=== PATIENT | female | born 2000 | race Caucasian/White ===

== ENCOUNTER 2020-05-25 15:27 | Emergency (ER) | payer BC, SELFPAY ==
--- NOTE | ~2020-05-25 | CT_ITS ---
EXAMINATION: CT abdomen pelvis wo con DATE: 05/25/2020 17:01 INDICATION: Left flank pain and dysuria TECHNIQUE: Computed tomography (CT) of the abdomen and pelvis was performed without intravenous contr ast. The dose-length product (DLP) was 186.76 mGy-cm. Automated exposure control and iterative recons truction technique were employed. COMPARISON: None FINDINGS: The lung bases are clear. The heart size is normal. The liver, spleen, pancreas, gallbladde r, and adrenal glands are normal. The ureters are difficult to follow however, there is a 4 mm stone at the expected location of the left ureterovesicular junction and mild left hydroureteronephrosis. T here is a 4 mm nonobstructing stone of the right kidney. No pathologically enlarged abdominal or pelv ic lymph nodes are identified. There is no free intraperitoneal gas or evidence of bowel obstruction. IMPRESSION: 1. Mild left hydroureteronephrosis with 4 mm stone at the expected location of the left ureterovesicu lar junction. 2. Nonobstructing right nephrolithiasis. Reviewed, dictated and finalized at location A. IMPRESSION: 1. Mild left hydroureteronephrosis with 4 mm stone at the expected location of the left ureterovesicular junction. 2. Nonobstructing right nephrolithiasis.
[2020-05-25 15:55] VITALS: BP 130/84; PULSE 92; RESP 16; TEMP 37.4; O2SAT 99
[2020-05-25 16:16] LABS: Basophils Absolute Auto 0.03 K/mm3 (0.00-0.10); Basophils Percent Auto 0.3 % (0.0-1.0); Eosinophils Absolute Auto 0.12 K/mm3 (0.02-0.50); Eosinophils Percent Auto 1.2 % (1.0-6.0); Hematocrit 40.9 % (35.0-49.0); Hemoglobin 14.1 g/dL (12.0-15.0); Immature Granulocyte Absolute 0.06 K/mm3 (0.00-0.00); Immature Granulocyte Percent A 0.6 % (0.0-0.0); Lymphocytes Absolute Auto 1.54 K/mm3 (1.10-4.50); Lymphocytes Percent Auto 15.7 % (18.0-42.0); Mean Corpuscular HGB Conc 34.5 g/dL (32.0-36.0); Mean Corpuscular Hemoglobin 30.1 pg (27.0-31.0); Mean Corpuscular Volume 87.4 fL (78.0-102.0); Mean Platelet Volume 9.3 fl (9.2-11.8); Monocytes Percent Auto 9.2 % (2.0-11.0); Neutrophils Absolute Auto 7.2 K/mm3 (1.7-7.2); Platelet Count Result 247 K/mm3 (150-420); Red Blood Count 4.68 M/mm3 (4.20-5.40); Red Cell Distribution Width 11.5 % (11.6-14.4); White Blood Count 9.8 K/mm3 (4.8-10.8)
[2020-05-25] MEDS: SODIUM CHLORIDE 0.9% IV 1,000 ML 999 ML IV CONT (16:20)
[2020-05-25 16:21] LABS: Anion Gap 8 mmol/L (8-16); Blood Urea Nitrogen 22 mg/dL (7-18); Calcium 9.1 mg/dL (8.5-10.1); Carbon Dioxide 28 mmol/L (21-32); Chloride 102 mmol/L (98-108); Estimated CRCL calculation 52 ml/min; Estimated Glomerular Filt Rate 51; Glucose 129 mg/dL (70-99); Lipase 123 U/L (73-393); Osmolality Calculated 291 mOsm/kg (285-295); Potassium 3.7 mmol/L (3.5-5.1); Sodium 138 mmol/L (136-145)
[2020-05-25] MEDS: KETOROLAC 30 MG/ML VIAL (*BKC) IV PUSH (16:21)
[2020-05-25 16:28] LABS: Add Urine Microscopic? YES; Appearance Urine Clear (Clear); Bilirubin Urine Negative (Negative); Blood Urine 2+ (Negative); Color Urine Yellow (Yellow); Glucose Urine UA Negative (Negative); Ketones Urine Negative (Negative); Leukocyte Esterase Ur Negative LEU/UL (Negative); Nitrate Urine Negative (Negative); Protein Urine Negative (Negative); Specific Grav Ur >= 1.030 (1.010-1.020); Urobilinogen Urine 0.2 mg/dL (0.2-1.0)
[2020-05-25 16:30] LABS: INR 1.1; Partial Thromboplastin Time 27.5 SEC (22.3-31.6); Prothrombin Time 11.3 Seconds (9.64-11.0)
[2020-05-25 16:31] LABS: Pregnancy On Board Control Positive; Urine Pregnancy Test Negative
[2020-05-25 16:38] LABS: Squamous Epithelial Cell Urine Few /hpf (Few); WBC Urine None seen /hpf (0-3)
[2020-05-25 16:39] LABS: Bacteria Urine 1+ /hpf; Calcium Oxalate Crystals Urine Present /hpf
--- NOTE | 2020-05-25 17:30 | ED.ABDPAIN ---
HPI - Abdominal Pain General Chief Complaint: Urogenital-Female Stated Complaint: 19YO female w. known h.o kidney stones here c/o 3 week h/o Left Flank pain that has been moving downwards. Patient rates pain at 6/10 but states it is bearable. Denies Fever, CHills, Dysuria. Related Data Home Medications Medication Instructions Recorded Confirmed No Home Medications 05/25/20 05/25/20 Allergies Allergy/AdvReac Type Severity Reaction Status Date / Time No Known Allergies Allergy Verified 05/25/20 16:27 Review of Systems Review of Systems: All systems reviewed & are unremarkable except as noted in HPI and below Constitutional: Constitutional: Reports as per HPI, Denies chills and Denies fever(s) Cardiovascular: Cardiovascular: Reports as per HPI and Reports no additional cardiovascular complaints Respiratory: Respiratory: Reports no additional respiratory complaints Gastrointestinal: Gastrointestinal: Reports as per HPI, Denies abdominal pain, Denies diarrhea, Denies nausea and Denies vomiting Genitourinary: Genitourinary: Reports hematuria, Denies dysuria and Reports flank pain (Left) Musculoskeletal: Musculoskeletal: Reports no additional musculoskeletal complaints Integumentary/Breasts: Skin/Breast: Reports system reviewed and no additional complaints, except as docu Neurologic: Reports system reviewed and no additional complaints, except as documented [facility] Past Medical History Medical History (Updated 05/25/20 @ 17:37 by Александр Chaudhry MD) Renal calculi Exam Const: General: healthy appearing, no acute distress and alert Orientation/consciousness: patient oriented x3 HENMT: Head: normal to inspection Eyes: Conjunctivae: conjunctivae normal Pupils: Equal, round and reactive pupils present Neck: Neck: normal visual inspection Resp: Effort & Inspection: normal respiratory effort Auscultation: clear to auscultation bilaterally Cardio: Rate: regular rate Rhythm: regular rhythm GI: Inspection: non-distended GI Palp: Yes Soft to palpation and No Tenderness to palpation present (GI) : General: Yes no CVA tenderness Back/Spine/Pelvis: Back: no CVA tenderness Skin: General skin exam: normal color Neuro: General: patient oriented x3, moves all extremities, no focal motor deficits and CN's II-XI intact bilaterally Course Course Emergency Course: Reviewed w/u which shows Left 4mm stone at UVJ. Will attempt outpt management w/ urology f/u. Patient agreeable to this Vital Signs Vital signs: Vital Signs Temperature 99.3 F 05/25/20 15:55 Pulse Rate 92 05/25/20 15:55 Respiratory Rate 16 05/25/20 15:55 Blood Pressure 130/84 05/25/20 15:55 Pulse Oximetry 99 05/25/20 15:55 Temperature 99.3 F 05/25/20 15:55 Pulse Rate 92 05/25/20 15:55 Respiratory Rate 16 05/25/20 15:55 Blood Pressure 130/84 05/25/20 15:55 Pulse Oximetry 99 05/25/20 15:55 MDM - Abdominal Pain Differential Diagnosis Differential diagnosis: Likely abdominal pain, acute appendicitis, calculus of kidney, diverticulitis, gastroenteritis and pancreatitis Medical Records Attestation: I reviewed the patient's medical records. Lab Data Attestation: I reviewed the patient's lab results. Result diagrams: 05/25/20 16:02 05/25/20 16:02 Labs: Lab Results 05/25/20 05/25/20 05/25/20 Range/Units 16:02 16:02 16:02 WBC 9.8 (4.8-10.8) K/mm3 RBC 4.68 (4.20-5.40) M/mm3 Hgb 14.1 (12.0-15.0) g/dL Hct 40.9 (35.0-49.0) % MCV 87.4 (78.0-102.0) fL MCH 30.1 (27.0-31.0) pg MCHC 34.5 (32.0-36.0) g/dL RDW 11.5 L (11.6-14.4) % Plt Count 247 (150-420) K/mm3 MPV 9.3 (9.2-11.8) fl Immature Gran % (Auto) 0.6 H (0.0-0.0) % Neut % (Auto) 73.0 H (50.0-70.0) % Lymph % (Auto) 15.7 L (18.0-42.0) % [place] % (Auto) 9.2 (2.0-11.0) % Eos % (Auto) 1.2 (1.0-6.0) % Baso % (Auto) 0.3 (0.0-1.0) % Lymph # (Auto)
[2020-05-25] MEDS: TAMSULOSIN HCL 0.4 MG CAPSULE PO (17:34)
[2020-05-25 17:55] VITALS: BP 120/74; PULSE 86; RESP 16; O2SAT 100
== END 2020-05-25 17:55 | disposition home or self-care (01) ==
PROVIDERS: Emergency Provider Family Medicine; PCP Internal Medicine
DX: N20.1 Calculus of ureter (principal)
CPT/HCPCS: 36415; 74176; 80048; 81001; 81025; 83690; 85025; 85610; 85730; 96361; 96374; 99284; A9270; J1885; J7030

== ENCOUNTER 2020-10-31 22:14 | Emergency (ER) | payer BC, SELFPAY ==
--- NOTE | ~2020-10-31 | XR_ITS ---
XR knee LT 3V DATE: 10/31/2020 22:53 INDICATION: Fall, twisted left knee. Patellar dislocation with reduction TECHNIQUE: 3 views COMPARISON: None FINDINGS: No fracture or dislocation or joint effusion. No periosteal reaction or bone destruction, r adiopaque intra-articular loose body or chondrocalcinosis or joint space narrowing. IMPRESSION: Negative Reviewed, dictated and finalized at location A. [employer] IMPRESSION: Negative
[2020-10-31 22:18] VITALS: BP 126/90; PULSE 104; RESP 12; TEMP 37.4; O2SAT 100
--- NOTE | 2020-10-31 22:40 | PC.NURSE ---
patient brought back to ED room 12 with c/o left knee injury tonight while dancing at home. see initial notes. no deformity seen to left knee. mild swelling noted. mother in room. alert. oriented. no change in condition since initial assessment completed. blanket given. tylenol given as ordered. radiology here for portable xray.
[2020-10-31] MEDS: ACETAMINOPHEN 500 MG TABLET 1000 MG PO (22:53)
--- NOTE | 2020-10-31 22:53 | ED.LOWEXIN ---
HPI - Extremity Injury (Lower) General Chief Complaint: Extremity Injury, Lower Stated Complaint: Twisted Knee Time Seen by Provider: 10/31/20 22:29 History of Present Illness HPI Narrative: Patient is a 20-year-old female who presents ER with left knee pain. 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 She is able to reduce it on herself. She has been able to walk. No numbness or tingling to the lower extremities. Normal perfusion to the leg. Patient also reports discomfort to the left lateral thigh after the fall. Related Data Allergies Allergy/AdvReac Type Severity Reaction Status Date / Time No Known Allergies Allergy Verified 10/31/20 23:06 Review of Systems Musculoskeletal: Musculoskeletal: Reports arthralgias, Denies joint swelling and Denies muscle cramps Neurologic: Denies focal weakness and Denies numbness PMFSH Past Medical History Medical History (Updated 10/31/20 @ 23:30 by Bob Jackson MD) Renal calculi Social History Social History Gender identity (if verbalized by the patient): Female Exam Narrative: Exam Narrative: GENERAL: Well-appearing, well-nourished, and in no acute distress. HEAD: Normocephalic, atraumatic. EXTREMITIES: Focused exam left lower extremity reveals full range of motion with active and passive range of motion of the knee and hip left side. Patella nontender and situated in the middle of the knee. No numbness or tingling to the distal aspect of the leg. Normal dorsalis pedis and posterior tibial pulses. SKIN: Warm, dry, no rash. NEURO: Alert and oriented x3. PSYCH: Normal mood and affect. Course Course Emergency Course: Patient informed of results. Placed knee immobilizer and has her own crutches. Discussed weightbearing as tolerated. Recommend follow-up with PCP for further treatment evaluation and clearance to full activities. Vital Signs Vital signs: Vital Signs Temperature 99.4 F 10/31/20 22:18 Pulse Rate 104 H 10/31/20 22:18 Respiratory Rate 12 10/31/20 22:18 Blood Pressure 126/90 10/31/20 22:18 Pulse Oximetry 100 10/31/20 22:18 Temperature 99.4 F 10/31/20 22:18 Pulse Rate 104 H 10/31/20 22:18 Respiratory Rate 12 10/31/20 22:18 Blood Pressure 126/90 10/31/20 22:18 Pulse Oximetry 100 10/31/20 22:18 MDM - Extremity Injury (Lower) Imaging Data Radiologist's impression: ITS Impressions Knee X-Ray 10/31/20 22:59 IMPRESSION: Negative Discharge Plan Discharge Clinical Impression: Closed patellar dislocation Patient Disposition: Home, Self-Care Condition: Stable Instructions: Patellar Dislocation (ED), Knee Immobilizer (ED) Additional Instructions: Return the ER if you suffer additional injury, you have chest pain or shortness of breath, you have numbness or tingling to your lower extremities, your leg becomes extremely painful and bright white, or you have any additional concerns. Prescriptions: New naproxen 500 mg tablet 500 mg PO BID Qty: 20 RF: 0 No Action hydrocodone-acetaminophen [[place]] 5-325 mg tablet 1 tablet PO Q6H PRN (Reason: pain) Qty: 20 RF: 0 ketorolac 10 mg tablet 10 mg PO Q6H PRN (Reason: Pain) 5 Days Qty: 20 RF: 0 tamsulosin [Flomax] 0.4 mg capsule 0.4 mg PO DAILY Qty: 20 RF: 0 Follow-up/Referrals: Ramakrishna Whittington MD [Primary Care Provider] - 1 Week
[2020-11-01 00:04] VITALS: BP 116/70; PULSE 78; O2SAT 100
== END 2020-11-01 00:05 | disposition home or self-care (01) ==
PROVIDERS: Emergency Provider Emergency Medicine; PCP Internal Medicine
DX: S83.005A Unspecified dislocation of left patella, initial encounter (principal); Z87.442 Personal history of urinary calculi; X50.9XXA Other and unspecified overexertion or strenuous movements or postures, initial encounter; Y93.41 Activity, dancing
CPT/HCPCS: 73562; 99283; A9270

== ENCOUNTER 2020-11-19 13:00 | Outpatient (RCR) | payer BC, SELFPAY ==
--- NOTE | 2020-11-19 13:30 | PTOPEVAL ---
Thank you for referring Ratna Vieira to [facility].? The patient is scheduled to be seen for therapy? ____x/week for ___ weeks. Please review, sign, date and return this plan of care KURTIS. I agree with and certify that the following plan of care is medically necessary. Referring Physician Date Admitting Provider: Attending Provider: Tony Fish Referring Provider: LEATHA Outpatient Evaluation Start: 11/19/20 13:05 Freq: Status: Active Protocol: Document 11/19/20 13:05 ANGELITO (Rec: 11/19/20 13:30 ANGELITO [id number]) Therapy Assessment Status Assessment Status Assessment Status Evaluation Outpatient Past Medical History Genitourinary History Hx Kidney Stones Yes Evaluation Information Problem Diagnosis patellar discolation Onset 10/31/20 Additional Evaluation Detail lefs = Subjective Information patient reports she injured Query Text:As Reported By Patient/ her knee while dancing in her Family room at home. she reports she went to the ER at [facility] for evaluation and resulted in an patellar dislocation. she reports she has never had this injury prior. she reports the patella came out and when back in. she reports she has pain still with deep squatting. Prior Level of Function Comments Additional Prior Level of Function prior to injury, no issuess. Comments able to squat, jump, run, etc. 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 Pain Assessment Timing of Pain Assessment Timing of Pain Assessment Assessment Pain Scale Pain Scale Used Numeric (1 - 10) Self Report Pain Assessment Left Knee(s) Reported Pain Level 0 Greatest Pain Intensity 2 Pain Score Pain Score 0: Self Report Interventions Used Interventions Used By Clinicians Activity or ADL's,Electrical Stimulation,Exercise,Ice Lower Extremity Range of Motion Knee Range of Motion Left Knee Flexion Range of Motion - Active 120 Knee Extension Range of Motion - Active 0 Query Text: Right Knee Flexion Range of Motion - Active 132 Knee Extension Range of Motion - Active 0 Query Text: Lower Extremity Muscle Strength Testing Hip Strength Left Hip Flexion Strength 4 Good Hip Extension Strength 5 Normal Hip Abduction Strength 5 Normal Hip Strength Comments patient presents with
== END 2020-12-11 09:17 | disposition home or self-care (01) ==
LOC: CHSPT 13:00
DX: S83.005A Unspecified dislocation of left patella, initial encounter (principal)
CPT/HCPCS: 97110; 97112; 97161

== ENCOUNTER 2021-07-12 11:16 | Outpatient (CLI) | payer BC, SELFPAY ==
[2021-07-12 12:36] LABS: SARS-CoV-2 RNA PCR Negative (Negative)
== END 2021-07-12 11:17 | disposition home or self-care (01) ==
LOC: CHSLAB 11:19
PROVIDERS: PCP Internal Medicine; Visit Provider Internal Medicine
DX: Z20.822 Contact with and (suspected) exposure to COVID-19 (principal)
CPT/HCPCS: C9803; U0003; U0005

== ENCOUNTER 2021-12-12 11:18 | Outpatient (CLI) | payer BC, SELFPAY ==
[2021-12-12 12:11] LABS: SARS-CoV-2 RNA PCR Negative (Negative)
== END 2021-12-12 11:19 | disposition home or self-care (01) ==
LOC: CHSLAB 11:20
PROVIDERS: PCP Internal Medicine; Visit Provider Internal Medicine
DX: J02.9 Acute pharyngitis, unspecified (principal); Z20.822 Contact with and (suspected) exposure to COVID-19
CPT/HCPCS: 87081; 87880; C9803; U0003; U0005